=== PATIENT | male | born 1965 | race Two or more races ===

== ENCOUNTER 2017-03-02 01:06 | Emergency (ER) | payer MEDICAID ==
[~2017-03-02] VITALS: Ht 180.3 cm; Wt 65.8 kg
[~2017-03-02 01:06] MED LIST: IBUPROFEN600 MG ORAL; ZOFRAN ODT4 MG ORAL
[2017-03-02] MEDS ORDERED: NKM (01:14)
[2017-03-02 01:30] VITALS: BP 129/82
[2017-03-02] MEDS ORDERED: Hydrogen Peroxide 473ml Bottle TOPIC ONE (01:50)
--- NOTE | 2017-03-02 02:22 | Emergency Room Report ---
History of Present Illness General Chief Complaint: Earache Source: Patient Present Illness HPI This is a 51-year-old male with no past progress. He presents with chief complaint of right ear pain. Onset for last 2-4 days. Worse with movement. No fever chills a slight cough. Nothing made it better. Nothing made it worse. Can't hear very well in that ear Allergies: Coded Allergies: No Known Allergies (Unverified , 06/29/16) Patient History Past Medical History: see triage record, old chart reviewed Past Surgical History: other Pertinent Family History: none Social History: Denies: drug use Immunizations: other Reviewed Nursing Documentation: PMH: Agreed, PSxH: Agreed Nursing Documentation-PMH Past Medical History: No Stated History Review of Systems Eye: Denies: blurred vision, eye pain ENT: Reports: ear pain, Denies: nose congestion, throat swelling Respiratory: Denies: cough, shortness of breath Cardiovascular: Denies: chest pain, palpitations Gastrointestinal: Denies: abdominal pain, diarrhea, nausea, vomiting Musculoskeletal: Denies: back pain, joint pain Skin: Denies: rash Neurological: Denies: headache, numbness Endocrine: Denies: increased thirst, increased urine Hematologic/Lymphatic: Denies: easy bruising All Other Systems: negative except mentioned in HPI Physical Exam Vital Signs Date Time Temp Pulse Resp B/P Pulse Ox O2 Delivery O2 Flow Rate FiO2 03/02/17 01:08 97.5 87 16 131/86 98 Room Air vitals normal Sp02 EP Interpretation: reviewed, normal General Appearance: well appearing, no apparent distress, alert Head: normocephalic, atraumatic Eyes: bilateral eye EOMI, bilateral eye PERRL ENT: hearing grossly normal, normal pharynx, other - Bilateral ear canal impacted with cerumen. Neck: full range of motion, supple, no meningismus Respiratory: chest non-tender, lungs clear, normal breath sounds Cardiovascular #1: regular rate, rhythm, no murmur Gastrointestinal: normal bowel sounds, non tender, no mass, no organomegaly, no bruit, non-distended Musculoskeletal: back normal, gait/station normal, normal range of motion Psychiatric: mood/affect normal Skin: warm/dry Procedures Additional Procedure Procedure Narrative Procedure: Cerumen disimpaction Indication: Cerumen impaction Description: Both ear canals are impacted with cerumen. Using a 16 angiocatheter and syringe I was able to irrigate both ears. Was able removed the cerumen on the left ear. Was large and very hard. The right ear cerumen was bigger and very tight. Was able removed about third of it. On reexamination is no trauma. There is cloudiness of the left TM. Unable to see the right TM. Patient tolerated procedure without a problem. Medical Decision Making Diagnostic Impression: Primary Impression: Earache, right Additional Impressions: Otitis media Qualified Codes: H66.90 - Otitis media, unspecified, unspecified ear Impacted cerumen of both ears ER Course Patient with your pain. He may have an otitis. Rated with antibiotics. Was unable to sent back to cerumen on the right fully. We'll discharge home with drops to loosen it up. He will need to return in a week or see his Dr. for the procedure. He has no ENT Dr. no evidence of mastoiditis or perforation. Last Vital Signs Date Time Temp Pulse Resp B/P Pulse Ox O2 Delivery O2 Flow Rate FiO2 03/02/17 01:08 97.5 87 16 131/86 98 Room Air Status: improved Disposition: HOME, SELF-CARE Condition: Stable Scripts Carbamide Peroxide (DEBROX) 15 Ml Drops 10 DROP RIGHT EAR TWICE A DAY for 7 Days, ML 0 Refills Prov: BRIGID MARTELL M.D. 03/02/17 Referrals: [facility],REFERRING (PCP) Patient Instructions: Otitis Media, Adult, [id number] Additional Instructions: Followup in a week for recheck. Return if symptom worsen. Use eardrops as directed. BRIGID MARTELL M.D. March 02, 2017 02:22
[2017-03-02] MEDS ORDERED: DEBROX15 M1 RIGHT EAR (03:13)
[2017-03-02] MEDS ORDERED: AMOXICILLIN500 MG ORAL (03:19)
[2017-03-02 03:30] VITALS: BP 133/93
[2017-03-02 03:36] VITALS: BP 133/93
== END 2017-03-02 03:36 | disposition home or self-care (01) ==
LOC: EMR 01:26
DX: H92.01 Otalgia, right ear (principal); H66.90 Otitis media, unspecified, unspecified ear; H61.23 Impacted cerumen, bilateral
CPT/HCPCS: 69210; 99283

== ENCOUNTER 2017-03-06 00:08 | Emergency (ER) | payer OTHER, MEDICAID ==
[~2017-03-06] VITALS: Ht 180.3 cm; Wt 68.0 kg
[~2017-03-06 00:08] MED LIST changes: +AMOXICILLIN500 MG ORAL; +DEBROX15 M1 RIGHT EAR; +NKM
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
[2017-03-06 00:35] VITALS: BP 150/95
[2017-03-06] MEDS ORDERED: Norco 5mg/325mg tab ORAL ONE (00:45)
[2017-03-06 01:30] VITALS: BP 142/88
[2017-03-06] MEDS ORDERED: IBUPROFEN600 MG ORAL (01:33)
[2017-03-06 01:40] VITALS: BP 142/88
--- NOTE | 2017-03-06 11:47 | Diagnostic Imaging Report ---
Indication: TRAUMA Technique: Continuous helical CT scanning of the head was performed without intravenous contrast material. Axial and coronal 5 mm sections were generated. Radiation dose was minimized using automated exposure control Dose: Total Dose Length Product - DLP 1004 and [address] Dose Index - CTDIvol(s) 70.38 mGy. Comparison: None Findings: The ventricular system is normal in size and configuration except for mild age-related prominence of the extra-axial CSF spaces.. There is no shift of midline structures. No abnormal extra-axial fluid collections are noted. There is no evidence of intracerebral bleeding. No other abnormal high or low density areas are noted within the brain. There is minimal ethmoid sinus disease. The orbits are unremarkable. Impression: Normal CT scan of the head without contrast material. This agrees with the preliminary interpretation provided overnight by [facility] telerad[facility] service. The CT scanner at [facility] is accredited by the [employer] and the scans are performed using protocols designed to limit radiation exposure to as low as reasonably achievable to attain images of sufficient resolution adequate for diagnostic evaluation.
== END 2017-03-06 01:40 | disposition home or self-care (01) ==
LOC: EMR 00:37
DX: S09.8XXA Other specified injuries of head, initial encounter (principal); S20.212A Contusion of left front wall of thorax, initial encounter; S20.211A Contusion of right front wall of thorax, initial encounter; Y04.2XXA Assault by strike against or bumped into by another person, initial encounter; Y92.89 Other specified places as the place of occurrence of the external cause; Y99.0 Civilian activity done for income or pay; H61.21 Impacted cerumen, right ear
CPT/HCPCS: 69210; 70450; 99284

== ENCOUNTER 2018-07-01 20:04 | Emergency (ER) | payer MEDICAID, OTHER ==
[~2018-07-01] VITALS: Ht 180.3 cm; Wt 68.0 kg
[2018-07-01 20:33] VITALS: BP 126/90
[2018-07-01] MEDS ORDERED: BACITRACIN ZIN1 EACH TOPIC (20:39)
[2018-07-01] MEDS ORDERED: Bacitracin Oint UD TOPIC ONE (20:45)
--- NOTE | 2018-07-01 21:03 | Emergency Room Report ---
History of Present Illness General Chief Complaint: Head Injury Source: Patient Present Illness HPI Patient is a 53-year-old male presented after increased foreign body sensation. Patient recent fall onto some broken glass. He reports having the some foreign body sensation to the scalp. He denies any severe headache or dizziness.. Injury occurred approximately 3 days prior to arrival. Patient not been having any severe neck pain. Patient was noted to be ambulatory after the fall. Allergies: Coded Allergies: No Known Allergies (Unverified , 06/29/16) Patient History Reviewed Nursing Documentation: PMH: Agreed; PSxH: Agreed Nursing Documentation-PMH Past Medical History: No Stated History Review of Systems All Other Systems: negative except mentioned in HPI Physical Exam Vital Signs Date Time Temp Pulse Resp B/P (MAP) Pulse Ox O2 Delivery O2 Flow Rate FiO2 07/01/18 20:20 97.9 88 18 126/90 97 Room Air 97.9 General Appearance: well appearing, no apparent distress, alert, GCS 15, non- toxic Head: normocephalic, other - scalp laceration less than 0.5 cm ENT: hearing grossly normal, normal voice Neck: full range of motion, supple Respiratory: normal inspection, lungs clear, no respiratory distress, speaking full sentences Cardiovascular #1: normal inspection Musculoskeletal: no calf tenderness Neurologic: normal gait Psychiatric: mood/affect normal Skin: no rash Medical Decision Making Diagnostic Impression: Primary Impression: Visit for wound check ER Course Patient presented for wound check. Differential diagnosis included was not limited to infected wound, nonhealed wound, neuroma, healed wound. The patient was noted to have some foreign material in his wound which is removed. It does not appear to be amenable to suturing.The patient is advised to follow up with primary care doctor for reexamination in the next few days..The patient does not appear to be infected. Topical antibiotics were applied. Patient is advised to return if any worsening condition or if any changes in status that are concerning. This report is dictated with [employer] retort furnace operator software which may occasionally lead to discrepancies related to use of this software. Last Vital Signs Date Time Temp Pulse Resp B/P (MAP) Pulse Ox O2 Delivery O2 Flow Rate FiO2 07/01/18 20:33 97.9 88 18 126/90 97 Room Air 97.9 Status: improved Disposition: HOME, SELF-CARE Condition: Stable Scripts Bacitracin Zinc* (BACITRACIN ZINC*) 1 Each Packet 1 APPLIC TOPIC THREE TIMES A DAY, #14 PACKET Prov: Parker Brambila MD 07/01/18 Patient Instructions: Wound Check Parker Brambila MD Jul 01, 2018 21:03
[2018-07-01 21:07] VITALS: BP 118/78
== END 2018-07-01 21:10 | disposition home or self-care (01) ==
LOC: EMR 20:56
DX: Z48.817 Encounter for surgical aftercare following surgery on the skin and subcutaneous tissue (principal)
CPT/HCPCS: 99282

== ENCOUNTER 2019-05-19 14:18 | Emergency (ER) | payer MEDICAID ==
[~2019-05-19] VITALS: Ht 180.3 cm; Wt 68.0 kg
[~2019-05-19 14:18] MED LIST changes: +BACITRACIN ZIN1 EACH TOPIC
[2019-05-19] MEDS ORDERED: NKM (14:29)
[2019-05-19 14:40] VITALS: BP 123/76
--- NOTE | 2019-05-19 14:41 | NUR ---
ED Nurse Note: pt walked in to ED to get iv antibiotic medication. per pt, has abscess on right upper gum 2 weeks ago and referred to see oral surgeon. unable to follow up with surgeon. sx gets worse. no fever or chills reported. AAO x4. respirations even and non-labored noted. will wait for the further order.
[2019-05-19] MEDS ORDERED: cefTRIAXone 2 GM in NS 55 ML IVPB ONE (15:15)
[2019-05-19 15:43] LABS: BASOPHILS % (AUTO) 1.3 % (0.0-2.0); EOSINOPHILS % (AUTO) 1.6 % (0.0-3.0); HEMATOCRIT 37.9 % (42.0-52.0); HEMOGLOBIN 14.1 G/DL (14.2-18.0); LYMPHOCYTES % (AUTO) 16.2 % (20.0-45.0); MEAN CORPUSCULAR VOLUME 98 FL (80-99); MONOCYTES % (AUTO) 9.7 % (1.0-10.0); NEUTROPHILS % (AUTO) 71.3 % (45.0-75.0); PLATELET COUNT 215 K/UL (150-450); RED BLOOD COUNT 3.87 M/UL (4.70-6.10); RED CELL DISTRIBUTION WIDTH 10.6 % (11.6-14.8); WHITE BLOOD COUNT 9.6 K/UL (4.8-10.8)
--- NOTE | 2019-05-19 15:44 | Emergency Room Report ---
History of Present Illness General Chief Complaint: Skin Rash/Abscess Source: Patient Present Illness HPI 53-year-old male presents to the emergency department complaining of 7 out of 10 severity right-sided shoulder pain/dental pain with swelling, purulent discharge and failed outpatient oral antibiotic therapy from dentist. Patient also is noncompliant with follow-up appointments with oral surgeon. Patient has been told that he needs tooth extraction and has a dental abscess. Patient denies fevers or chills. He denies headache, dizziness, nausea vomiting, confusion. Patient reports some swelling migrating up towards the right cheekbone he denies pain with eye movements. Patient denies purulent nasal discharge. Denies history of immune compromise and he denies any other aggravating or relieving factors. Allergies: Coded Allergies: No Known Allergies (Unverified , 06/29/16) Patient History Past Medical History: see triage record Past Surgical History: none Pertinent Family History: none Reviewed Nursing Documentation: PMH: Agreed; PSxH: Agreed Nursing Documentation-PMH Past Medical History: No Stated History Review of Systems All Other Systems: negative except mentioned in HPI Physical Exam Vital Signs Date Time Temp Pulse Resp B/P (MAP) Pulse Ox O2 Delivery O2 Flow Rate FiO2 05/19/19 14:26 98.1 93 18 123/76 (92) 95 Room Air Sp02 EP Interpretation: reviewed, normal General Appearance: no apparent distress, alert, GCS 15, non-toxic, mild distress Head: normocephalic, atraumatic Eyes: bilateral eye normal inspection, bilateral eye PERRL, bilateral eye EOMI ENT: hearing grossly normal, normal voice, other - Patient has almost all of his upper dentition removed and is currently wearing a denture. Patient still has tooth #6 intact which is significantly and visibly rotted there is purulent discharge draining at the gumline there is no palpable fluctuance there is some tenderness there is tenderness to percussion. The tooth is severely discolored/ dark in color. Also some swelling to the soft tissue of the face just distal to the opening of the right nare and right maxillary sinus. No rhinorrhea on nasal exam. Neck: full range of motion Respiratory: chest non-tender, lungs clear, normal breath sounds, speaking full sentences Cardiovascular #1: regular rate, rhythm, no edema Gastrointestinal: normal bowel sounds, non tender, soft Rectal: deferred Genitourinary: normal inspection Musculoskeletal: back normal, gait/station normal, normal range of motion, non- tender Neurologic: alert, oriented x3, responsive, motor strength/tone normal, sensory intact, speech normal, grossly normal Psychiatric: judgement/insight normal Lymphatic: no adenopathy Medical Decision Making PA Attestation Dr. Lorenzo is my supervising Physician whom patient management has been discussed with. Diagnostic Impression: Primary Impression: Dental abscess Additional Impression: Facial cellulitis ER Course 53-year-old male presents to the emergency department complaining of 7 out of 10 severity right-sided shoulder pain/dental pain with swelling, purulent discharge and failed outpatient oral antibiotic therapy from dentist. Patient also is noncompliant with follow-up appointments with oral surgeon. Patient has been told that he needs tooth extraction and has a dental abscess. Patient denies fevers or chills. He denies headache, dizziness, nausea vomiting, confusion. Patient reports some swelling migrating up towards the right cheekbone he denies pain with eye movements. Patient denies purulent nasal discharge. Denies history of immune compromise and he denies any other aggravating or relieving factors. Ddx considered but are not limited to cellulitis, dental abscess, orbital cellulitis, d/l tooth, dental pain. trigeminal neuralgia Vital signs: are WNL, pt. is afebrile H&PE are most consistent with facial cellulitis and possible dental abscess of tooth no. 6. will do imaging and treat with IV abx due to failed outpatient amoxicillin ORDERS: -CBC, BMP: WNL/unremarkable -CT Facial Bones w. contrast--- no abscess. ED INTERVENTIONS: -2g Rocephin IV -500mg Flagyl IV -Toradol IV -I do not identify an emergent condition at this time. With current presentation , pt. is stable for close outpatient follow up and conservative treatment. D/ w pt. to return promptly to ED with worsening or new symptoms.- Pt. verbalizes' understanding and agreement with proposed treatment plan.proposed treatment plan. DISCHARGE: At this time pt. is stable for d/c to home. Will provide printed patient care instructions, and any necessary prescriptions. Care plan and follow up instructions have been discussed with the patient prior to discharge. Labs Test 05/19/19 15:20 White Blood Count 9.6 K/UL (4.8-10.8) Red Blood Count 3.87 M/UL (4.70-6.10) Hemoglobin 14.1 G/DL (14.2-18.0) Hematocrit 37.9 % (42.0-52.0) Mean Corpuscular Volume 98 FL (80-99) Mean Corpuscular Hemoglobin 36.5 PG (27.0-31.0) Mean Corpuscular Hemoglobin Concent 37.3 G/DL (32.0-36.0) Red Cell Distribution Width 10.6 % (11.6-14.8) Platelet Count 215 K/UL (150-450) Mean Platelet Volume 5.6 FL (6.5-10.1) Neutrophils (%) (Auto) 71.3 % (45.0-75.0) Lymphocytes (%) (Auto) 16.2 % (20.0-45.0) Monocytes (%) (Auto) 9.7 % (1.0-10.0) Eosinophils (%) (Auto) 1.6 % (0.0-3.0) Basophils (%) (Auto) 1.3 % (0.0-2.0) Sodium Level 139 MMOL/L (136-145) Potassium Level 3.7 MMOL/L (3.5-5.1) Chloride Level 107 MMOL/L (98-107) Carbon Dioxide Level 26 MMOL/L (21-32) Anion Gap 6 mmol/L (5-15) Blood Urea Nitrogen 13 mg/dL (7-18) Creatinine 0.9 MG/DL (0.55-1.30) Estimat Glomerular Filtration Rate > 60 mL/min (>60) Glucose Level 105 MG/DL (74-106) Calcium Level 8.6 MG/DL (8.5-10.1) CT/MRI/US Diagnostic Results CT/MRI/US Diagnostic Results : Imaging Test Ordered: CT Facial Bones with contrast Impression " No definite evidence of cortical erosion or subperiosteal abscess, however evaluation of the dentition is limited by streak artifact." --Per official radiology report - Please see report for specific details. Last Vital Signs Date Time Temp Pulse Resp B/P (MAP) Pulse Ox O2 Delivery O2 Flow Rate FiO2 05/19/19 14:40 98.1 93 18 123/76 95 Room Air Status: improved Disposition: HOME, SELF-CARE Condition: Stable Scripts Acetaminophen With Codeine (T#3) (TYLENOL #3 TAB*) Y Tab 1 TAB ORAL Q6HR PRN for For Pain, #10 TAB Prov: Maria De Jesus Guajardo 05/19/19 Clindamycin Hcl (CLINDAMYCIN HCL) 300 Mg Capsule 300 MG ORAL FOUR TIMES A DAY for 7 Days, #28 CAP Prov: Maria De Jesus Guajardo 05/19/19 Referrals: [facility] Patient Instructions: Dental Abscess, [id number] Additional Instructions: Take medications as directed. Follow up with a Dentist and ORAL SURGEON in 3-5 days, even if your symptoms have resolved. --Please review list of Dental clinics, if you do not already have a Dentist Return sooner to ED if new symptoms occur, or current symptoms become worse. Do not drink alcohol, drive, or operate heavy machinery while taking Tylenol # 3 as this may cause drowsiness. - Please note that this Emergency Department Report was dictated using [employer] processing mechanic technology software, occasionally this can lead to erroneous entry secondary to interpretation by the dictation equipment. Maria De Jesus Guajardo May 19, 2019 15:43
[2019-05-19 15:52] LABS: ANION GAP 6 mmol/L (5-15); BLOOD UREA NITROGEN 13 mg/dL (7-18); CALCIUM 8.6 MG/DL (8.5-10.1); CARBON DIOXIDE 26 MMOL/L (21-32); CHLORIDE 107 MMOL/L (98-107); CREATININE 0.9 MG/DL (0.55-1.30); POTASSIUM 3.7 MMOL/L (3.5-5.1); SODIUM 139 MMOL/L (136-145)
[2019-05-19] MEDS ORDERED: Ketorolac 30mg Inj IV ONE (16:00)
[2019-05-19] MEDS ORDERED: Isovue-300 100ml vial INJ PRN (16:00)
--- NOTE | 2019-05-19 17:02 | Diagnostic Imaging Report ---
Indication: Dental abscess Technique: CT maxillofacial was performed utilizing automated exposure control without intravenous contrast material. Axial and coronal images were generated. CT dose: Total DLP 602.81 mGycm; CTDI vol 28.19 mGy Comparison: None Findings: No acute fracture is identified. The mandible, midface and nasal bones are intact. The orbits are unremarkable. Mastoid air cells are clear. There is mild left sphenoid mucosal thickening. The nasal septum is midline. Evaluation of the dentition is limited due to streak artifact from dental fillings/implants. No maxillary or mandibular cortical erosion. No definite fluid collection or subperiosteal abscess. There are multilevel discogenic degenerative changes of the visualized cervical spine. No acute intracranial findings. Impression: No definite evidence of cortical erosion or subperiosteal abscess, however evaluation of the dentition is limited by streak artifact. The CT scanner at [facility] is accredited by the [employer] and the scans are performed using protocols designed to limit radiation exposure to as low as reasonably achievable to attain images of sufficient resolution adequate for diagnostic evaluation.
[2019-05-19] MEDS ORDERED: ACETAMINOPHEN-1 EAC1 ORAL (17:23)
[2019-05-19] MEDS ORDERED: CLINDAMYCIN HC300 MG ORAL (17:23)
[2019-05-19 17:50] VITALS: BP 117/70
--- NOTE | 2019-05-19 17:51 | NUR ---
ER DISCHARGE NOTE: Patient is cleared to be discharged per ERMD, pt is aox4, on room air, with stable vital signs. pt was given dc and prescription instructions, pt was able to verbalize understanding, pt id band and iv site removed without complications. pt is able to ambulate with steady gait. pt took all belongings.
== END 2019-05-19 17:52 | disposition home or self-care (01) ==
LOC: EMR 14:40
DX: K04.7 Periapical abscess without sinus (principal); L03.211 Cellulitis of face; M25.511 Pain in right shoulder
CPT/HCPCS: 36415; 70488; 80048; 85025; 96365; 96368; 96375; 99284; J0696; J1885; Q9967